=== PATIENT | female | born 1990 | race Caucasian/White ===

== ENCOUNTER 2019-06-07 07:12 | Day surgery (SDC) | payer MEDICAID ==
[~2019-06-07] VITALS: Ht 154.9 cm; Wt 116.1 kg
[~2019-06-07 07:12] MED LIST: KEFLEX500 MG PO; MUPIROCIN22 GM TOPICAL
[2019-06-07 07:34] LABS: HEMATOCRIT 39.6 % (36.0-48.0); HEMOGLOBIN 12.3 g/dL (12-16); MCH 28.2 pg (26.0-34.0); MCHC 31.1 g/dL (31.0-37.0); MCV 90.8 fL (80.0-100.0); MEAN PLATELET VOLUME 11.4 fL (7.4-10.4); RBC 4.36 10x6/uL (4.00-5.40); RDW 13.6 % (11.5-14.5); WBC 9.2 10x3/uL (4.8-10.8)
[2019-06-07 08:13] VITALS: BP 119/69; Ht 154.9 cm; Wt 116.1 kg
--- NOTE | 2019-06-07 08:32 | NUR ---
3351 BEHAVIORAL HEALTH CONSULT REQUESTED. SPOKE WITH HORTICULTURAL AGENT, RUTH.
--- NOTE | 2019-06-07 08:52 | NUR ---
DR. KOO NOTIFIED AND REVIEWED PT'S BEHAVIOR AND ASSESSMENT RESULTS. PT IS A LOW RISK PER DR. KOO. DR. KOO STATED TO GIVE RESOURCES TO PT AT TIME OF DISCHARGE. NO FURTHER ORDERS AT THIS TIME. RSOUCRES REVIEWED WITH PT AND SHE VERBALIZIED UNDERSTANDING.
[2019-06-07 08:55] LABS: HCG URINE NEGATIVE (NEGATIVE)
[2019-06-07 09:22] LABS: UDS - AMPHET POSITIVE QUAL (NEGATIVE); UDS - BARB NEGATIVE QUAL (NEGATIVE); UDS - BENZO NEGATIVE QUAL (NEGATIVE); UDS - COCAINE NEGATIVE QUAL (NEGATIVE); UDS - OPIATE NEGATIVE QUAL (NEGATIVE); UDS - PCP NEGATIVE QUAL (NEGATIVE); UDS - THC NEGATIVE QUAL (NEGATIVE)
--- NOTE | 2019-06-07 09:38 | NUR ---
5790 DR TERAN NOTIFIED OF URINE DRUG SCREEN RESULTS.
[2019-06-07] MEDS ORDERED: HYDROCODON-ACE1 EA10 PO (11:27)
--- NOTE | 2019-06-07 12:28 | OP ---
PATIENT NAME: CHALO HERNANDEZ MEDICAL RECORD: [id number] :88 LOCATION:D.OPS ADMISSION DATE: SURGEON: LAINE WEAVER MD DATE OF OPERATION: 06/07/2019 PREOPERATIVE DIAGNOSIS: Carpal tunnel syndrome of the left wrist. POSTOPERATIVE DIAGNOSIS: Carpal tunnel syndrome of the left wrist. PROCEDURE: Left carpal tunnel release. SURGEON: Laine Weaver MD TECHNICAL IMPLEMENTATION LEAD: London Casper MD ANESTHESIA: Regional with local only. INTRAOPERATIVE COMPLICATIONS: None. SUMMARY OF PATHOLOGIC FINDINGS: The patient had a very thickened and tight transverse carpal ligament consistent with the preoperative diagnosis as well as EMGs and NCVs. OPERATIVE SUMMARY IN DETAIL: After obtaining the appropriate preoperative orthopedic surgery consent as well as anesthetic consultation, evaluation and clearance, the patient was brought to the operating room and placed on the operating table in supine position. After adequate regional anesthesia was administered, the patient remained completely conscious, a tourniquet was placed about the proximal aspect of left upper extremity. Left upper extremity was then prepped and draped in routine sterile fashion. The arm was elevated and exsanguinated, tourniquet was inflated to 350 mmHg. Incision was made in line with the fourth metacarpal ray. Immediately upon starting the incision, the patient had some residual discomfort even after her regional anesthesia. Therefore, the area was anesthetized locally, infiltrated with 0.25% Marcaine with epinephrine. Incision was then made down to the transverse carpal ligament, which was identified. Very careful dissection was carried back. Median nerve was identified and then the entire very thickened transverse carpal ligament was incised in its entirety to the proximal wrist crease. Having completed this, the wound was irrigated and closed with 4-0 Prolene by London Casper. Sterile dressings were applied. Tourniquet was deflated. The patient was awakened and taken to the recovery room in stable condition. All final needle and sponge counts were correct. TRANSINT:[id number] Voice Confirmation ID: [id number] DOCUMENT ID: [id number] LAINE WEAVER MD at 1228 CC: [id number] DICTATION DATE: 06/07/19 1125 HOISTING ENGINEER: 06/07/19 1149 [id number] [place] [address]
== END 2019-06-07 12:40 | disposition home or self-care (01) ==
LOC: D.OPS 07:12 → D.PAN 10:00 → D.OPS 11:30
PROVIDERS: Anesthesiology; ATTEND Orthopaedic Surgery
DX: G56.02 Carpal tunnel syndrome, left upper limb (principal); Z86.14 Personal history of Methicillin resistant Staphylococcus aureus infection

== ENCOUNTER 2019-08-13 05:37 | Day surgery (SDC) | payer MEDICAID ==
[~2019-08-13] VITALS: Ht 154.9 cm; Wt 116.1 kg
[~2019-08-13 05:37] MED LIST changes: +HYDROCODON-ACE1 EA10 PO
[2019-08-13 06:07] LABS: HEMATOCRIT 40.5 % (36.0-48.0); HEMOGLOBIN 12.9 g/dL (12-16); MCH 28.2 pg (26.0-34.0); MCHC 31.9 g/dL (31.0-37.0); MCV 88.6 fL (80.0-100.0); MEAN PLATELET VOLUME 11.2 fL (7.4-10.4); RBC 4.57 10x6/uL (4.00-5.40); RDW 14.4 % (11.5-14.5); WBC 10.2 10x3/uL (4.8-10.8)
[2019-08-13] MEDS ORDERED: BUTALB-APAP-CA1 EACH PO (06:40)
[2019-08-13] MEDS ORDERED: CYCLOBENZAPRINE10 MG PO (06:40)
[2019-08-13 06:46] VITALS: BP 130/91; Ht 154.9 cm; Wt 116.1 kg
[2019-08-13 06:53] LABS: HCG URINE NEGATIVE (NEGATIVE)
[2019-08-13 06:58] LABS: UDS - AMPHET POSITIVE QUAL (NEGATIVE); UDS - BARB POSITIVE QUAL (NEGATIVE); UDS - BENZO NEGATIVE QUAL (NEGATIVE); UDS - COCAINE NEGATIVE QUAL (NEGATIVE); UDS - OPIATE NEGATIVE QUAL (NEGATIVE); UDS - PCP NEGATIVE QUAL (NEGATIVE); UDS - THC NEGATIVE QUAL (NEGATIVE)
[2019-08-13] MEDS ORDERED: HYDROCODON-ACE1 EA10 PO (09:10)
--- NOTE | 2019-08-16 11:49 | OP ---
PATIENT NAME: CHALO HERNANDEZ MEDICAL RECORD: [id number] :89 LOCATION:D.OPS ADMISSION DATE: SURGEON: LAINE WEAVER MD DATE OF OPERATION: 08/13/2019 PREOPERATIVE DIAGNOSIS: Carpal tunnel syndrome of the left wrist. POSTOPERATIVE DIAGNOSIS: Carpal tunnel syndrome of the left wrist. PROCEDURE: Left carpal tunnel release. SURGEON: Laine Weaver MD ANESTHESIA: TIVA with block. INTRAOPERATIVE COMPLICATIONS: None. SUMMARY OF PATHOLOGIC FINDINGS: The patient had a very tight transverse carpal ligament consistent with preoperative diagnosis. OPERATIVE SUMMARY IN DETAIL: After obtaining the appropriate preoperative orthopedic surgery consent as well as anesthetic consultation, evaluation, and clearance, the patient was brought to the operating room and placed on the operating table in supine position. After adequate general laryngeal mask airway was administered, tourniquet was placed on the proximal aspect of the left upper extremity. Left upper extremity was then prepped and draped in routine sterile fashion. After the appropriate timeout was taken and agreed upon by all, the left arm was elevated, exsanguinated and tourniquet was inflated to 350 mmHg. Midline incision was taken down under direct visualization to the distal aspect of the transverse carpal ligament. A small incision was done here to reveal the median nerve, which was then protected with a [place] elevator while the [place] light knife was utilized to release the entire transverse carpal ligament under direct visualization. Wound was copiously irrigated and closed with 4-0 Prolene in routine interrupted fashion. The area was locally anesthetized with 0.25% Marcaine plain. Tourniquet was deflated. Sterile dressings were applied. The patient was awakened, taken to the recovery room in stable condition. All final needle and sponge counts were correct. TRANSINT:[id number] Voice Confirmation ID: [id number] DOCUMENT ID: [id number] LAINE WEAVER MD at 1149 CC: [id number] DICTATION DATE: 08/14/19 09 AIR CONTROL ELECTRONICS OPERATOR: 08/14/19 1206 [facility] 08/13/19 [place] [address]
== END 2019-08-13 10:05 | disposition home or self-care (01) ==
LOC: D.OPS 05:37 → D.PAN 18:00
PROVIDERS: Anesthesiology; ATTEND Orthopaedic Surgery
DX: G56.02 Carpal tunnel syndrome, left upper limb (principal); Z86.14 Personal history of Methicillin resistant Staphylococcus aureus infection